=== PATIENT | male | born 1955 | race Caucasian/White ===

== ENCOUNTER → 2022-11-03 | Outpatient (CLI) | payer OTHER, SELFPAY ==
--- NOTE | 2022-11-03 14:56 | CT_ITS ---
INDICATION: FACIAL PAIN EXAMINATION: CT FACIAL BONES - CT Maxillofacial W/O Contrast Injection TECHNIQUE: Helically acquired images were obtained of the facial bones. A radiation dose optimization technique was used for this scan. IV Contrast dosage and agent: None. RADIATION DOSAGE (If Supplied By Facility): CTDIvol = ( 33.06 ) mGy, DLP = ( 895.83 ) mGycm COMPARISON: FINDINGS: SOFT TISSUES: Mild right facial subcutaneous edema. No discrete fluid collections. VISUALIZED PARANASAL SINUSES: Right maxillary sinus mucosal thickening. VISUALIZED MASTOID AIR CELLS: Clear. FACIAL BONES, MANDIBLE AND TMJs: No displaced facial bone fracture. No lytic or blastic abnormality. VISUALIZED DENTITION: No periodontal osseous erosion. ORBITAL CONTENTS: Both globes, extraocular muscles and retrobulbar fat appear unremarkable. CT/Sinus/Facial Bone IMPRESSION: Mild right facial subcutaneous edema. Right maxillary sinus mucosal thickening. Electronically Signed: Pascual Pryor DO at 18:24 EDT Reading Location ID and State: [facility] / ID Tel [phone], Service support ,
== END | disposition home or self-care (01) ==
LOC: CT 14:54
PROVIDERS: Referring Provider Otolaryngology; Visit Provider Otolaryngology
DX: G50.1 Atypical facial pain (principal); J32.8 Other chronic sinusitis
CPT/HCPCS: 70486